=== PATIENT | female | born 1990 | race Caucasian/White ===

== ENCOUNTER 2017-10-08 17:20 | Emergency (ER) | payer OTHER ==
[~2017-10-08] VITALS: Ht 154.9 cm; Wt 61.3 kg
[~2017-10-08 17:20] MED LIST: ZOFRAN ODT4 MG PO
[2017-10-08] MEDS ORDERED: BUSPAR5 MG PO (18:01)
[2017-10-08] MEDS ORDERED: PAROXETINE10 MG PO (18:03)
[2017-10-08] MEDS ORDERED: PRAZOSIN HCL1 MG PO (18:04)
[2017-10-08 18:23] LABS: URINE BILIRUBIN - DIPSTICK NEGATIVE (NEGATIVE); URINE BLOOD DIPSTICK NEGATIVE (NEGATIVE); URINE COLOR YELLOW; URINE GLUCOSE - DIPSTICK NEGATIVE (NEGATIVE); URINE KETONE NEGATIVE (NEGATIVE); URINE LEUK ESTERASE NEGATIVE (NEGATIVE); URINE NITRITE - DIPSTICK NEGATIVE (Negative); URINE PROTEIN - DIPSTICK NEGATIVE (NEG-TRACE); URINE SPECIFIC GRAVITY <=1.005; URINE UROBILINOGEN - DIPSTICK 0.2 E.U./dL (0.2)
[2017-10-08 18:26] LABS: HEMATOCRIT 36.9 % (37.0-47.0); HEMOGLOBIN 12.6 g/dl (12.0-16.0); IMMATURE GRANULOCYTES 0.2 % (0.0-1.0); MEAN CELL VOLUME 95.6 fL CALC (80.0-100.0); MEAN CORPUSCULAR HGB 32.6 pG CALC (26.0-32.0); MEAN CORPUSCULAR HGB CONC 34.1 g/L CALC (32.0-36.0); NEUT# 2.55 thou/uL (2.00-7.15); RED BLOOD COUNT 3.86 mill/uL (4.20-5.60); RED CELL DISTRI WIDTH 12.5 % (11.5-15.5)
[2017-10-08 18:27] LABS: URINE CLARITY CLEAR
[2017-10-08 18:37] LABS: ALBUMIN 4.3 g/dL (3.2-5.0); ALKALINE PHOSPHATASE 59 u/l (38-126); AMYLASE 41 u/l (30-110); ANION GAP 16 (6-22 (CALC)); BILIRUBIN, TOTAL 0.3 mg/dL (0.0-1.4); BUN 8 mg/dL (7-17); CARBON DIOXIDE 25 mmol/l (22-30); CHLORIDE 108 mmol/l (95-108); LIPASE 73 u/l (23-300); SGOT/AST 17 u/l (14-36); SGPT/ALT 17 u/l (9-52); TOTAL PROTEIN 7.1 g/dL (6.3-8.2)
[2017-10-08 18:38] LABS: BUN/CREATININE RATIO 11 (12-20 (CALC)); CREATININE 0.7 mg/dL (0.5-1.0); GFR > 60 ML/MIN (>=60 (CALC)); GFR FOR AFR.AMER. > 60 ML/MIN (>=60 (CALC)); SODIUM 145 mmol/l (137-146)
[2017-10-08 21:26] VITALS: BP 99/75
== END 2017-10-08 21:17 | DRG 392 ==
LOC: ED 17:20
PROVIDERS: Family Medicine
DX: R10.32 Left lower quadrant pain (principal); K80.80 Other cholelithiasis without obstruction
CPT/HCPCS: Q9967

== ENCOUNTER 2018-01-10 23:55 | Emergency (ER) | payer SELFPAY ==
[~2018-01-10] VITALS: Ht 154.9 cm; Wt 48.6 kg
[~2018-01-10 23:55] MED LIST changes: +BUSPAR5 MG PO; +PAROXETINE10 MG PO; +PRAZOSIN HCL1 MG PO
[2018-01-11 00:40] LABS: HEMATOCRIT 41.6 % (37.0-47.0); HEMOGLOBIN 14.4 g/dl (12.0-16.0); IMMATURE GRANULOCYTES 0.6 % (0.0-1.0); MEAN CELL VOLUME 95.6 fL CALC (80.0-100.0); MEAN CORPUSCULAR HGB 33.1 pG CALC (26.0-32.0); MEAN CORPUSCULAR HGB CONC 34.6 g/L CALC (32.0-36.0); NEUT# 14.75 thou/uL (2.00-7.15); RED BLOOD COUNT 4.35 mill/uL (4.20-5.60); RED CELL DISTRI WIDTH 12.2 % (11.5-15.5); URINE BLOOD DIPSTICK NEGATIVE (NEGATIVE); URINE COLOR YELLOW; URINE GLUCOSE - DIPSTICK NEGATIVE (NEGATIVE); URINE KETONE 40 mg/dL (NEGATIVE); URINE NITRITE - DIPSTICK NEGATIVE (Negative); URINE PH >=9.0 (4.5-8.0); URINE PROTEIN - DIPSTICK 30 mg/dL (NEG-TRACE)
[2018-01-11 00:41] LABS: URINE CLARITY TURBID
[2018-01-11 00:42] LABS: URINE BILIRUBIN - DIPSTICK SMALL (NEGATIVE); URINE LEUK ESTERASE MODERATE (NEGATIVE)
[2018-01-11 00:46] LABS: URINE RBC 0-2 RBC/hpf (0-5); URINE SQUAMOUS EPITHELIAL CELL FEW EPI/hpf (0-FEW); URINE WBC 50-100 WBC/hpf (0-5)
[2018-01-11 00:47] LABS: URINE BACTERIA MODERATE hpf; URINE MUCUS MANY hpf (NONE-FEW)
[2018-01-11 00:51] LABS: ALKALINE PHOSPHATASE 64 u/l (38-126); BILIRUBIN, TOTAL 0.8 mg/dL (0.0-1.4); BUN 9 mg/dL (7-17); BUN/CREATININE RATIO 15 (12-20 (CALC)); CARBON DIOXIDE 24 mmol/l (22-30); CHLORIDE 104 mmol/l (95-108); CREATININE 0.6 mg/dL (0.5-1.0); GFR > 60 ML/MIN (>=60 (CALC)); GFR FOR AFR.AMER. > 60 ML/MIN (>=60 (CALC)); SGOT/AST 13 u/l (14-36); SGPT/ALT 24 u/l (9-52); SODIUM 141 mmol/l (137-146); TOTAL PROTEIN 7.4 g/dL (6.3-8.2)
[2018-01-11 00:52] LABS: ANION GAP 16 (6-22 (CALC))
[2018-01-11 01:41] LABS: AMYLASE 39 u/l (30-110); LIPASE 14 u/l (23-300)
[2018-01-11 02:41] LABS: BARBITURATES NEGATIVE (NEGATIVE); COCAINE POSITIVE (NEGATIVE); METHADONE NEGATIVE (NEGATIVE); OXCYCODONE NEGATIVE (NEGATIVE); TETRAHYDROCANNABIONOL POSITIVE (NEGATIVE); TRICYLIC ANTIDEPRESSANTS NEGATIVE (NEGATIVE)
[2018-01-11] MEDS ORDERED: TRAMADOL HCL50 MG PO (03:34)
[2018-01-11] MEDS ORDERED: METRONIDAZOL500 MG PO (03:34)
[2018-01-11] MEDS ORDERED: DOXYCYCL HYC100 MG PO (03:34)
[2018-01-11 04:26] VITALS: BP 92/50
== END 2018-01-11 04:26 | disposition home or self-care (01) | DRG 759 ==
LOC: ED 23:55
PROVIDERS: Family Medicine
DX: N73.9 Female pelvic inflammatory disease, unspecified (principal); B96.20 Unspecified Escherichia coli [E. coli] as the cause of diseases classified elsewhere; F17.210 Nicotine dependence, cigarettes, uncomplicated; F41.9 Anxiety disorder, unspecified; F32.9 Major depressive disorder, single episode, unspecified; F43.10 Post-traumatic stress disorder, unspecified; F19.10 Other psychoactive substance abuse, uncomplicated

== ENCOUNTER 2018-09-26 22:48 | Emergency (ER) | payer SELFPAY ==
[~2018-09-26] VITALS: Ht 154.9 cm; Wt 57.0 kg
[~2018-09-26 22:48] MED LIST changes: +DOXYCYCL HYC100 MG PO; +METRONIDAZOL500 MG PO; +TRAMADOL HCL50 MG PO
[2018-09-26 23:00] VITALS: BP 133/83
[2018-09-26 23:23] LABS: HEMATOCRIT 38.5 % (37.0-47.0); HEMOGLOBIN 13.2 g/dl (12.0-16.0); IMMATURE GRANULOCYTES 0.4 % (0.0-5.0); MEAN CORPUSCULAR HGB 33.2 pG CALC (26.0-32.0); MEAN CORPUSCULAR HGB CONC 34.3 g/L CALC (32.0-36.0); NEUT# 4.09 thou/uL (2.00-7.15); RED BLOOD COUNT 3.97 mill/uL (4.20-5.60); RED CELL DISTRI WIDTH 12.7 % (11.5-15.5)
[2018-09-26 23:26] LABS: URINE BLOOD DIPSTICK LARGE (NEGATIVE); URINE COLOR YELLOW; URINE GLUCOSE - DIPSTICK NEGATIVE (NEGATIVE); URINE KETONE NEGATIVE (NEGATIVE); URINE LEUK ESTERASE NEGATIVE (NEGATIVE); URINE NITRITE - DIPSTICK NEGATIVE (Negative); URINE PROTEIN - DIPSTICK TRACE mg/dL (NEG-TRACE); URINE SPECIFIC GRAVITY >=1.030; URINE UROBILINOGEN - DIPSTICK 0.2 E.U./dL (0.2)
[2018-09-26 23:28] LABS: URINE BILIRUBIN - DIPSTICK SMALL (NEGATIVE)
[2018-09-26 23:29] LABS: COCAINE NEGATIVE (NEGATIVE); TETRAHYDROCANNABIONOL NEGATIVE (NEGATIVE); URINE RBC 25-50 RBC/hpf (0-5)
[2018-09-26 23:30] LABS: BARBITURATES NEGATIVE (NEGATIVE); METHADONE NEGATIVE (NEGATIVE); OXCYCODONE NEGATIVE (NEGATIVE); TRICYLIC ANTIDEPRESSANTS NEGATIVE (NEGATIVE)
[2018-09-26 23:33] LABS: ALBUMIN 4.6 g/dL (3.2-5.0); ALKALINE PHOSPHATASE 59 u/l (38-126); AMYLASE 44 u/l (30-110); ANION GAP 14 (6-22 (CALC)); BILIRUBIN, TOTAL 0.5 mg/dL (0.0-1.4); BUN 8 mg/dL (7-17); BUN/CREATININE RATIO 13 (12-20 (CALC)); CARBON DIOXIDE 25 mmol/l (22-30); CHLORIDE 104 mmol/l (95-108); CREATININE 0.6 mg/dL (0.5-1.0); GFR > 60 ML/MIN (>=60 (CALC)); GFR FOR AFR.AMER. > 60 ML/MIN (>=60 (CALC)); LIPASE 48 u/l (23-300); POTASSIUM 3.4 mmol/l (3.5-5.1); SGOT/AST 17 u/l (14-36); SODIUM 140 mmol/l (137-146); TOTAL PROTEIN 7.3 g/dL (6.3-8.2)
== END 2018-09-27 00:14 | disposition left against medical advice (07) | DRG 392 ==
LOC: ED 22:48
PROVIDERS: Emergency Medicine
DX: R10.11 Right upper quadrant pain (principal); K80.20 Calculus of gallbladder without cholecystitis without obstruction; R82.6 Abnormal urine levels of substances chiefly nonmedicinal as to source; F41.9 Anxiety disorder, unspecified; F32.9 Major depressive disorder, single episode, unspecified; F43.10 Post-traumatic stress disorder, unspecified; F17.200 Nicotine dependence, unspecified, uncomplicated; Z91.19 Patient's noncompliance with other medical treatment and regimen
CPT/HCPCS: S0164

== ENCOUNTER 2020-04-05 04:57 | Emergency (ER) | payer OTHER ==
[~2020-04-05] VITALS: Ht 154.9 cm; Wt 57.0 kg
[2020-04-05] MEDS ORDERED: PAROXETINE40 M1 PO (05:19)
[2020-04-05] MEDS ORDERED: LAMICTAL200 M1 PO (05:21)
[2020-04-05] MEDS ORDERED: (None)0.5 MG PO (05:26)
[2020-04-05] MEDS ORDERED: ALPRAZOLAM1 MG PO (05:28)
[2020-04-05 05:37] LABS: URINE BILIRUBIN - DIPSTICK NEGATIVE (NEGATIVE); URINE BLOOD DIPSTICK NEGATIVE (NEGATIVE); URINE COLOR YELLOW; URINE GLUCOSE - DIPSTICK NEGATIVE (NEGATIVE); URINE KETONE NEGATIVE (NEGATIVE); URINE LEUK ESTERASE NEGATIVE (NEGATIVE); URINE NITRITE - DIPSTICK NEGATIVE (Negative); URINE PH 8.5 (4.5-8.0); URINE PROTEIN - DIPSTICK NEGATIVE (NEG-TRACE); URINE SPECIFIC GRAVITY 1.015; URINE UROBILINOGEN - DIPSTICK 0.2 E.U./dL (0.2)
[2020-04-05 05:37] LABS: HEMATOCRIT 34.6 % (37.0-47.0); HEMOGLOBIN 11.3 g/dl (12.0-16.0); IMMATURE GRANULOCYTES 0.1 % (0.0-5.0); MEAN CELL VOLUME 91.8 fL CALC (80.0-100.0); MEAN CORPUSCULAR HGB CONC 32.7 g/dL CAL (32.0-36.0); NEUT# 4.04 thou/uL (2.00-7.15); RED BLOOD COUNT 3.77 mill/uL (4.20-5.60); RED CELL DISTRI WIDTH 14.3 % (11.5-15.5)
[2020-04-05 05:53] LABS: ALBUMIN 4.3 g/dL (3.2-5.0); ALKALINE PHOSPHATASE 82 u/l (38-126); ANION GAP 11 (6-22 (CALC)); BILIRUBIN, TOTAL 0.3 mg/dL (0.0-1.4); BUN 9 mg/dL (7-17); BUN/CREATININE RATIO 14 (12-20 (CALC)); CARBON DIOXIDE 27 mmol/l (22-30); CHLORIDE 103 mmol/l (95-108); CPK 69 u/l (30-165); CREATININE 0.6 mg/dL (0.5-1.0); ETHYL ALCOHOL 0 mg/dl (0-30); GFR > 60 ML/MIN (>=60 (CALC)); GFR FOR AFR.AMER. > 60 ML/MIN (>=60 (CALC)); POTASSIUM 3.5 mmol/l (3.5-5.1); SGOT/AST 28 u/l (14-36); SODIUM 137 mmol/l (137-146); TOTAL PROTEIN 7.1 g/dL (6.3-8.2)
[2020-04-05 08:34] VITALS: BP 109/62
== END 2020-04-05 08:34 | disposition short-term general hospital (02) | DRG 948 ==
LOC: ED 04:57
PROVIDERS: Emergency Medicine
DX: R41.82 Altered mental status, unspecified (principal); R90.89 Other abnormal findings on diagnostic imaging of central nervous system; F15.10 Other stimulant abuse, uncomplicated; F19.10 Other psychoactive substance abuse, uncomplicated; F41.9 Anxiety disorder, unspecified; F32.9 Major depressive disorder, single episode, unspecified; F43.10 Post-traumatic stress disorder, unspecified; F17.200 Nicotine dependence, unspecified, uncomplicated

== ENCOUNTER 2020-08-28 03:18 | Emergency (ER) | payer OTHER ==
[~2020-08-28] VITALS: Ht 154.9 cm; Wt 45.0 kg
[~2020-08-28 03:18] MED LIST changes: +(None)0.5 MG PO; +ALPRAZOLAM1 MG PO; +BACTRIM DS1 TAB PO; +LAMICTAL200 M1 PO; +PAROXETINE40 M1 PO; +PERCOCET 5/321 COMBO PO; +THC
[2020-08-28 03:55] LABS: HEMATOCRIT 33.4 % (37.0-47.0); HEMOGLOBIN 10.7 g/dl (12.0-16.0); IMMATURE GRANULOCYTES 0.3 % (0.0-5.0); MEAN CELL VOLUME 93.8 fL CALC (80.0-100.0); MEAN CORPUSCULAR HGB 30.1 pG CALC (26.0-32.0); NEUT# 8.9 thou/uL (2.00-7.15); RED BLOOD COUNT 3.56 mill/uL (4.20-5.60); RED CELL DISTRI WIDTH 15.1 % (11.5-15.5)
[2020-08-28 04:13] LABS: ALBUMIN 3.8 g/dL (3.2-5.0); ALKALINE PHOSPHATASE 66 u/l (38-126); AMYLASE 49 u/l (30-110); BUN 7 mg/dL (7-17); BUN/CREATININE RATIO 11 (12-20 (CALC)); CHLORIDE 103 mmol/l (95-108); CREATININE 0.6 mg/dL (0.5-1.0); GFR > 60 ML/MIN (>=60 (CALC)); GFR FOR AFR.AMER. > 60 ML/MIN (>=60 (CALC)); LIPASE 59 u/l (23-300); SGOT/AST 16 u/l (14-36); SODIUM 138 mmol/l (137-146); TOTAL PROTEIN 6.4 g/dL (6.3-8.2)
[2020-08-28 04:16] LABS: ANION GAP 11 (6-22 (CALC)); BILIRUBIN, TOTAL 0.5 mg/dL (0.0-1.4); CARBON DIOXIDE 29 mmol/l (22-30)
[2020-08-28 04:24] LABS: URINE BILIRUBIN - DIPSTICK NEGATIVE (NEGATIVE); URINE BLOOD DIPSTICK MODERATE (NEGATIVE); URINE COLOR YELLOW; URINE GLUCOSE - DIPSTICK NEGATIVE (NEGATIVE); URINE KETONE NEGATIVE (NEGATIVE); URINE PH 7.5 (4.5-8.0); URINE PROTEIN - DIPSTICK NEGATIVE (NEG-TRACE); URINE UROBILINOGEN - DIPSTICK 0.2 E.U./dL (0.2)
[2020-08-28 04:35] LABS: URINE LEUK ESTERASE SMALL (NEGATIVE); URINE NITRITE - DIPSTICK POSITIVE (Negative)
[2020-08-28 04:43] LABS: URINE BACTERIA MANY hpf; URINE SQUAMOUS EPITHELIAL CELL FEW EPI/hpf (0-FEW)
[2020-08-28] MEDS ORDERED: MAGNESIUM296 ML/BTL PO (06:45)
[2020-08-28] MEDS ORDERED: BACTRIM DS1 TAB PO (06:53)
[2020-08-28 07:16] VITALS: BP 98/54
--- NOTE | 2020-08-29 08:39 | NUR ---
PRELIM BLOOD CX RESULTS SHOW GRAM NEGATIVE RODS IN 2 BOTTLES, SAME SET. PT IS CURRENTLY ADMITTED. RESULTS REPORTED TO LAVELL
== END 2020-08-28 07:16 | DRG 690 ==
LOC: ED 03:18
PROVIDERS: Family Medicine
DX: N39.0 Urinary tract infection, site not specified (principal); K59.00 Constipation, unspecified; F19.10 Other psychoactive substance abuse, uncomplicated; K80.20 Calculus of gallbladder without cholecystitis without obstruction; F17.200 Nicotine dependence, unspecified, uncomplicated; F41.9 Anxiety disorder, unspecified; Z20.822 Contact with and (suspected) exposure to COVID-19
CPT/HCPCS: Q9967

== ENCOUNTER 2020-08-28 14:50 | Observation (INO) | payer OTHER ==
[~2020-08-28] VITALS: Ht 154.9 cm; Wt 45.4 kg
[~2020-08-28 14:50] MED LIST changes: +MAGNESIUM296 ML/BTL PO
--- NOTE | 2020-08-28 14:50 | NUR ---
PT AMBULATED TO THE ER WITH DCSO TAKEN TO ER BED 15 FOR TRIAGE.
[2020-08-28 16:43] LABS: HEMATOCRIT 34.6 % (37.0-47.0); HEMOGLOBIN 11.2 g/dl (12.0-16.0); IMMATURE GRANULOCYTES 0.4 % (0.0-5.0); MEAN CORPUSCULAR HGB 30.1 pG CALC (26.0-32.0); MEAN CORPUSCULAR HGB CONC 32.4 g/dL CAL (32.0-36.0); NEUT# 10.28 thou/uL (2.00-7.15); RED BLOOD COUNT 3.72 mill/uL (4.20-5.60); RED CELL DISTRI WIDTH 15.6 % (11.5-15.5)
[2020-08-28 17:07] LABS: ALBUMIN 3.6 g/dL (3.2-5.0); ALKALINE PHOSPHATASE 68 u/l (38-126); BILIRUBIN, TOTAL 0.5 mg/dL (0.0-1.4); BUN 8 mg/dL (7-17); BUN/CREATININE RATIO 13 (12-20 (CALC)); CARBON DIOXIDE 26 mmol/l (22-30); CHLORIDE 99 mmol/l (95-108); CREATININE 0.6 mg/dL (0.5-1.0); GFR > 60 ML/MIN (>=60 (CALC)); GFR FOR AFR.AMER. > 60 ML/MIN (>=60 (CALC)); LIPASE 26 u/l (23-300); POTASSIUM 4.6 mmol/l (3.5-5.1); SGOT/AST 28 u/l (14-36); TOTAL PROTEIN 6.4 g/dL (6.3-8.2)
[2020-08-28 17:09] LABS: ANION GAP 11 (6-22 (CALC)); SODIUM 131 mmol/l (137-146)
--- NOTE | 2020-08-28 17:30 | NUR ---
resting quietly, guard at bedside
--- NOTE | 2020-08-28 17:58 | NUR ---
straight cath completed using sterile technique. tolerated well.
--- NOTE | 2020-08-28 19:05 | NUR ---
PATIENT UP TO BR WITH ASSISTANCE. RETURNED TO BED. MONITORING CONTINUED. CALL GILBERT IN REACH.
[2020-08-28 19:16] LABS: URINE BILIRUBIN - DIPSTICK NEGATIVE (NEGATIVE); URINE BLOOD DIPSTICK LARGE (NEGATIVE); URINE COLOR YELLOW; URINE GLUCOSE - DIPSTICK NEGATIVE (NEGATIVE); URINE KETONE NEGATIVE (NEGATIVE); URINE NITRITE - DIPSTICK NEGATIVE (Negative); URINE PH 8.5 (4.5-8.0); URINE PROTEIN - DIPSTICK TRACE mg/dL (NEG-TRACE); URINE SPECIFIC GRAVITY 1.015; URINE UROBILINOGEN - DIPSTICK 0.2 E.U./dL (0.2)
[2020-08-28 19:20] LABS: URINE LEUK ESTERASE SMALL (NEGATIVE)
[2020-08-28 19:28] LABS: URINE SQUAMOUS EPITHELIAL CELL MANY EPI/hpf (0-FEW); URINE YEAST MANY hpf
--- NOTE | 2020-08-28 20:00 | NUR ---
SLEEPING. GUARD AT BEDSIDE.CALL GILBERT IN REACH
--- NOTE | 2020-08-28 21:13 | NUR ---
AWAITING PENDING ADMISSION. NO C/O.
[2020-08-28 22:10] VITALS: BP 103/71
--- NOTE | 2020-08-28 22:10 | NUR ---
PT ARRIVED TO FLOOR VIA WHEELCHAIR ACCOMPAINED BY ER STAFF AND X1 CINDY. PT IS ALERT AND ORIENTED X3. NO APPARENT DISTRESS NOTED. PT REQUESTING FOOD. C/O HEADACHE. LOW GRADE TEMP NOTED. PT HAS BANDAID ON RIGHT BREAST FROM I&D ON 08/24/20, CDI. FOOD AND DRINK PROVIDED, WILL MEDICATED FOR HEADACHE. PT ORIENTED TO ROOM AND CALL LIGHT SYSTEM. DISCUSSED POC. PT VERBALIZED UNDERSTANDING. SHACKLED TO BED, X1 CINDY REMAINS AT BEDSIDE. CALL LIGHT WITHIN REACH. WILL CONTINUE TO MONITOR.
--- NOTE | 2020-08-28 22:17 | NUR ---
TO MS VIA WC. STABLE UPON ARRIVAL. IV INTACT.
[2020-08-29] VITALS (7 sets, daily range): BP systolic 86–109; BP diastolic 41–65
--- NOTE | 2020-08-29 02:13 | NUR ---
PT RESTING IN BED WITH EYES CLOSED. X1 CINDY AT BEDSIDE, PT REMAINS SHACKLED TO BED. IV FLUIDS INFUSING WITHOUT DIFFICULTY. CALL LIGHT WITHIN REACH. WILL CONTINUE TO MONITOR.
[2020-08-29 05:26] LABS: HEMATOCRIT 31.4 % (37.0-47.0); IMMATURE GRANULOCYTES 0.6 % (0.0-5.0); MEAN CELL VOLUME 93.5 fL CALC (80.0-100.0); MEAN CORPUSCULAR HGB 29.8 pG CALC (26.0-32.0); MEAN CORPUSCULAR HGB CONC 31.8 g/dL CAL (32.0-36.0); NEUT# 9.49 thou/uL (2.00-7.15); RED BLOOD COUNT 3.36 mill/uL (4.20-5.60)
--- NOTE | 2020-08-29 06:15 | NUR ---
PT RESTING IN BED. WAKES EASILY. NO APPARENT DISTRESS NOTED. PT DENIES ANY PAIN OR DISCOMFORT. IVF INFUSING WITHOUT DIFFICULTY. X1 CINDY AT BEDSIDE. CALL LIGHT WITHIN REACH. WILL CONTINUE TO MONITOR.
[2020-08-29 06:37] LABS: ALBUMIN 2.6 g/dL (3.2-5.0); ALKALINE PHOSPHATASE 50 u/l (38-126); ANION GAP 9 (6-22 (CALC)); BILIRUBIN, TOTAL 0.2 mg/dL (0.0-1.4); BUN 10 mg/dL (7-17); BUN/CREATININE RATIO 14 (12-20 (CALC)); CARBON DIOXIDE 23 mmol/l (22-30); CHLORIDE 108 mmol/l (95-108); CHOLESTEROL HDL RATIO 2.3 (<4.4 (CALC)); CREATININE 0.8 mg/dL (0.5-1.0); GFR > 60 ML/MIN (>=60 (CALC)); GFR FOR AFR.AMER. > 60 ML/MIN (>=60 (CALC)); HDL CHOLESTEROL 48 mg/dL (>=40); POTASSIUM 3.9 mmol/l (3.5-5.1); SGOT/AST 17 u/l (14-36); SODIUM 137 mmol/l (137-146); TOTAL CHOLESTEROL 112 mg/dl (0-199); TOTAL PROTEIN 4.9 g/dL (6.3-8.2)
--- NOTE | 2020-08-29 07:50 | NUR ---
RECIEVED REPORT FROM CHARU QURESHI. PT SLEEPING IN SEMI [place] POSITION UPON ENTERING ROOM. PT EASE TO AWAKEN. INTRODUCED SELF TO PT AND DICUSSED POC. PT IS A/OX3 AND FROM [facility] WITH GUARD X1 AT BEDSIDE. ASSESSMENT AND VITALS COMPLETED. BP 87/55, HR 91, O2 100% ON ROOM AIR. REPSIRATIONS ARE EVEN AND UNLABORED WITH NO DISTRESS NOTED. HEART RHYTHM IS NORMAL. BOWEL SOUNDS ARE ACTIVE, LAST REPORTED BM 08/28/20. RADIAL AND PEDAL PULSES ARE STRONG. #20G IN RAC INFUSING WITH NORMAL SALINE PER ORDER, SITE APPEARS HEALTHY AND PATENT. PT COMPLAINS OF 7/10 HEADACHE, TYLENOL ADMINISTERED. PT PRESENT WITH BAND AIDE ON RIGHT NIPPLE. MEDICAL CENTER REPRESENTATIVE INFORMED THAT PT HAD I& D ON 08/24/20. PT STATES THAT DRESSING HAS NOT BEEN CHANGED SINCE. MD TO BE NOTFIED. PT REQUEST CHOCOLATED PUDDING AND COKE. ALL SAFETY PRECAUTIONS ARE IN PLACE WITH CALL LIGHT IN REACH. WILL CONTINUE TO MONITOR.
--- NOTE | 2020-08-29 08:30 | NUR ---
DR STACK AT BEDSIDE AT BEDSIDE
[2020-08-29 10:19] LABS: CALCULATED LDLCHOLESTEROL 49 mg/dL (62-129 (CALC)); TOTAL TRIGLYCERIDES 75 mg/dl (30-149); VLDL CHOLESTROL 15 mg/dl (1-41 (CALC))
--- NOTE | 2020-08-29 10:33 | NUR ---
REASSESSMENT OF BP REUSLTING IN 103/64, HR 99. CHOCOLATE PUDDING AND COKE ADMINISTERED. PT DENIES OF ANY NEEDS. ALL SAFETY PRECAUTIONS ARE IN PLACE. WILL CONTINUE TO MONITOR
--- NOTE | 2020-08-29 11:13 | NUR ---
REASSESSMENT OF PAIN RESULTING IN 02/21 STILL. MD NOTFIED OF PAIN. RESPIRATIONS REMAINS EVEN AND UNLABORED WITH NO DISTRESS. IVF INFUSING PER ORDER, SITE REMAINS HEALTHY AND PATENT. ALL SAFETY PRECAUTIONS ARE IN PLACE WITH CALL LIGHT IN REACH AND GUARD X1 AT BEDSIDE. WILL COINTINUE TO MONITOR
--- NOTE | 2020-08-29 12:19 | NUR ---
ORDERED WET TO DRY DRESSING TO RIGHT BREAST COMPLETED AT THIS TIME. PT TOELRATED WELL. RESPIRATIONS ARE EVEN AND UNLABORED ON ROOM AIR. PT COMLAINS OF 8 HEADACHE, LORTAB ADMINISTERED. PT DENIES OF ANY ADDITIONAL NEEDS AT THIS TIME. ALL SAFETY PRECAUTIONS ARE IN PLACE WIHT GUARD X1 AT BEDSIDE. WILL CONTINUE TO MONITOR.
--- NOTE | 2020-08-29 13:30 | NUR ---
PT TRANSPORTED TO US VIA WHEELCHAIR IN STABLE CONDITION ACCOMPAIN BY CASEY ARRIAGA
--- NOTE | 2020-08-29 14:10 | NUR ---
SUPERVISOR [employer] INFORMED BY ULTRA SOUND THAT US SHOWED DISTENDED BLADDER. MD TO BE NOTFIED.
--- NOTE | 2020-08-29 14:25 | NUR ---
BLADDER SCAN COMPLETED REUSLTING IN 475 ML.PT REPORTS THAT SHE HAS VOIDED EARLIER IN MORNING. PT STATES " IT FEELS LIKE I NEED TO GO BUT I CAN'T" MD [employer]. ORDERED TO STRAIGHT CATH.
--- NOTE | 2020-08-29 15:02 | NUR ---
STRAIGHT CATH COMPLETED WITH STERILE TECHNIQUE. PT TOLERATED WELL. 500ML OF YELLOW URINE OBTAINED.
--- NOTE | 2020-08-29 16:26 | NUR ---
PT SLEEPING IN CHAIR. RESPIRATIONS AER EVEN AND UNLABORED ON ROOM AIR. IVF INFUSING PER ORDER, SITE APPEARS EHALTHY AND PATENT. NO SIGNS OF ANY PAINS OR DISCOMFORTS. ALL SAFETY PRECAUTIONS ARE IN PLACE WITH CALL LIGHT IN REACH AND GUARD AT BEDSIDE. WILL CONTINUE TO MONITOR
--- NOTE | 2020-08-29 17:47 | NUR ---
PT VOIDED 300 OF CLEAR YELLOW URINE.
--- NOTE | 2020-08-29 20:30 | NUR ---
PT APPEARS TO BE SLEEPING, LAYING IN BED ON HER SIDE WITH EYES CLOSED, NO APPARENT DISTRESS, RESPIRATIONS REGULAR AND UNLABORED, APPEARS COMFORTABLE. WAKES EASILY TO VERBAL STIMULI. PT IS SHACKLED TO BED BY LLE. WOUND/OSTOMY CLINICAL NURSE SPECIALIST SITTING IN ROOM WITH PT. DRESSING TO R-BREAST TO R-SIDE MATTHIAS-AREOLAR REGION IS CLEAN/ DRY/ AND INTACT. SECURED WITH TRANSPARENT DRESSING. AREA AROUND WOUND IS INTACT AND FREE OF INDURATION AND ERYTHEMA. PT DENIES PAIN TO BREAST WOUND. PT C/O HEADACE TO OCCIPITAL REGION AND UPPER NAPE, RATES 8. R-AC #20G PATENT, INFUSING NS @ 150ML/H. SCHEDULED MEDICATION, PRN LORTAB FOR PAIN AND PRN XANAX FOR SLEEP ADMINISTERED. SEE E-MAR. HS SNACK AND BEVERAGE PROVIDED PER PT'S REQUEST. PT DENIES FURTHER NEEDS AT THIS TIME. PLAN OF CARE REVIEWED, PT VERBALIZES UNDERSTANDING AND DENIES QUESTIONS. CALL GILBERT WITHIN REACH, AGREES TO CALL PRN.
--- NOTE | 2020-08-30 00:39 | NUR ---
PT APPEARS TO BE SLEEPING COMFORTABLY, LAYING IN BED, EYES CLOSED, RESPIRATIONS REGULAR AND UNLABORED, NO APPARENT DISTRESS. CALL GILBERT REMAINS WITHIN REACH.
[2020-08-30 04:00] VITALS: BP 115/80
--- NOTE | 2020-08-30 04:53 | NUR ---
PT APPEARS TO BE SLEEPING COMFORTABLY, LAYING IN BED, EYES CLOSED, RESPIRATIONS REGULAR AND UNLABORED, NO APPARENT DISTRESS. CALL GILBERT REMAINS WITHIN REACH.
[2020-08-30 07:24] VITALS: BP 100/67
--- NOTE | 2020-08-30 07:30 | NUR ---
ASSESSMENT DONE . PATIENT IS RESTING IN BED. PATIENT STATED SHE HAS HEADACHE . MEDICATED PATIENT WITH TYLENOL. RESPS EVEN AND UNLABORED. IVF INFUSING WELL. RIGHT BREAST DRESSING CDI. OFFICER AT BED SIDE. PATIENT DENIES ANY OTHER NEEDS AT THIS TIME. CALL LIGHT IN REACH.
[2020-08-30] MEDS ORDERED: ROCEPHIN 1 GM1 GM IM (09:32)
[2020-08-30] MEDS ORDERED: DIFLUCAN150 MG PO (09:32)
[2020-08-30] MEDS ORDERED: TRAMADOL HCL50 MG PO (09:33)
[2020-08-30 11:03] VITALS: BP 106/57
--- NOTE | 2020-08-30 12:00 | NUR ---
PATIENT IS RESTING ON HER RIGHT SIDE WITH NO S/S OF DISTRESS NOTED. OFFICER IN ROOM. CALL LIGHT IN REACH.
--- NOTE | 2020-08-30 12:39 | NUR ---
REPORT WAS GIVEN TO SUZANNE MARISCAL FROM [facility]. PATIENT WILL BE GOING WITH IV SITE FOR HER IV ANTIBIOTIC.
--- NOTE | 2020-08-30 13:32 | NUR ---
CHANGE PATIENT DRESSING ON RIGHT BREAST AND PATIENT TOLERATED WELL. CALL LIGHT IN REACH.
--- NOTE | 2020-08-30 13:54 | NUR ---
Discharge instructions given. Patient verbalizes understanding of same. [facility]. 20 RAC IV SITE LEFT IN PLACE AND FLUSH WELL. All belongings sent with pt.
== END 2020-08-30 13:53 | DRG 758 ==
LOC: ED 14:50 → ED-I 20:25 → ED 20:37 → MS2 20:38
PROVIDERS: Family Medicine; Nurse Practitioner; ADMIT Internal Medicine; ATTEND Internal Medicine
DX: B37.49 Other urogenital candidiasis (principal); R78.81 Bacteremia; F41.9 Anxiety disorder, unspecified; F19.10 Other psychoactive substance abuse, uncomplicated; R51.9 Headache, unspecified; M54.2 Cervicalgia; F31.9 Bipolar disorder, unspecified; F17.200 Nicotine dependence, unspecified, uncomplicated; F20.9 Schizophrenia, unspecified; Z48.01 Encounter for change or removal of surgical wound dressing; Z20.822 Contact with and (suspected) exposure to COVID-19
CPT/HCPCS: G0378; J1650; Q9967

== ENCOUNTER 2021-11-24 12:27 | Emergency (ER) | payer OTHER ==
[~2021-11-24] VITALS: Ht 154.9 cm; Wt 52.0 kg
[~2021-11-24 12:27] MED LIST changes: +DIFLUCAN150 MG PO; +ROCEPHIN 1 GM1 GM IM
[2021-11-24 12:41] VITALS: BP 114/93
[2021-11-24] MEDS ORDERED: BUSPAR5 MG PO (12:41)
[2021-11-24 13:12] LABS: MEAN CORPUSCULAR HGB 32.1 pG CALC (26.0-32.0); MEAN CORPUSCULAR HGB CONC 33.5 g/dL CAL (32.0-36.0); NEUT# 2.23 thou/uL (2.00-7.15); RED BLOOD COUNT 4.2 mill/uL (4.20-5.60); RED CELL DISTRI WIDTH 13.6 % (11.5-15.5)
[2021-11-24 13:24] LABS: HEMOGLOBIN 13.5 g/dl (12.0-16.0)
[2021-11-24 13:25] LABS: HEMATOCRIT 40.3 % (37.0-47.0)
[2021-11-24 13:27] LABS: ALKALINE PHOSPHATASE 53 u/l (38-126); ANION GAP 11 (6-22 (CALC)); BUN 6 mg/dL (7-17); BUN/CREATININE RATIO 11 (12-20 (CALC)); CARBON DIOXIDE 25 mmol/l (22-30); CHLORIDE 107 mmol/l (95-108); CREATININE 0.6 mg/dL (0.5-1.0); GFR > 60 ML/MIN (>=60 (CALC)); GFR FOR AFR.AMER. > 60 ML/MIN (>=60 (CALC)); HCG SERUM/URINE (NEG/POS) NEGATIVE (NEGATIVE); POTASSIUM 3.8 mmol/l (3.5-5.1); SGOT/AST 19 u/l (14-36); SODIUM 139 mmol/l (137-146)
[2021-11-24 13:31] LABS: ALBUMIN 4.1 g/dL (3.2-5.0); BILIRUBIN, TOTAL 0.9 mg/dL (0.0-1.4); TOTAL PROTEIN 7.1 g/dL (6.3-8.2)
[2021-11-24] MEDS ORDERED: DOXYCYCL HYC100 M4 PO (13:47)
[2021-11-24] MEDS ORDERED: METRONIDAZOLE500 MG PO (13:47)
[2021-11-24] MEDS ORDERED: ISENTRESS400 MG PO (13:51)
[2021-11-24] MEDS ORDERED: COMBIVIR 1501 COMBO PO (13:51)
[2021-11-24 13:59] LABS: URINE BILIRUBIN - DIPSTICK NEGATIVE (NEGATIVE); URINE BLOOD DIPSTICK NEGATIVE (NEGATIVE); URINE COLOR YELLOW; URINE GLUCOSE - DIPSTICK NEGATIVE (NEGATIVE); URINE KETONE NEGATIVE (NEGATIVE); URINE NITRITE - DIPSTICK POSITIVE (Negative); URINE PROTEIN - DIPSTICK NEGATIVE (NEG-TRACE)
[2021-11-24 14:00] LABS: URINE BACTERIA MANY hpf; URINE EPITHELIAL CELLS MODERATE EPI/hpf (0-FEW); URINE LEUK ESTERASE SMALL (NEGATIVE); URINE MUCUS MODERATE hpf (NONE-FEW)
== END 2021-11-24 14:07 | disposition left against medical advice (07) ==
LOC: ED 12:27
PROVIDERS: Family Medicine
DX: T76.21XA Adult sexual abuse, suspected, initial encounter (principal); Z20.2 Contact with and (suspected) exposure to infections with a predominantly sexual mode of transmission; F17.210 Nicotine dependence, cigarettes, uncomplicated; R82.71 Bacteriuria; Z91.19 Patient's noncompliance with other medical treatment and regimen

== ENCOUNTER 2022-07-29 21:20 | Emergency (ER) | payer OTHER ==
[~2022-07-29] VITALS: Ht 154.9 cm; Wt 47.7 kg
[2022-07-29] VITALS (8 sets, daily range): BP systolic 94–105; BP diastolic 55–65
[~2022-07-29 21:20] MED LIST changes: +COMBIVIR 1501 COMBO PO; +DOXYCYCL HYC100 M4 PO; +ISENTRESS400 MG PO; +METRONIDAZOLE500 MG PO
[2022-07-29 21:43] LABS: HEMOGLOBIN 11.9 g/dl (12.0-16.0); IMMATURE GRANULOCYTES 0.1 % (0.0-5.0); MEAN CELL VOLUME 92.2 fL CALC (80.0-100.0); MEAN CORPUSCULAR HGB 32.1 pG CALC (26.0-32.0); MEAN CORPUSCULAR HGB CONC 34.8 g/dL CAL (32.0-36.0); NEUT# 2.46 thou/uL (2.00-7.15); RED BLOOD COUNT 3.71 mill/uL (4.20-5.60); RED CELL DISTRI WIDTH 13.2 % (11.5-15.5)
[2022-07-29 21:44] LABS: HEMATOCRIT 34.2 % (37.0-47.0)
[2022-07-29 21:55] LABS: ALBUMIN 4.5 g/dL (3.2-5.0); ALKALINE PHOSPHATASE 79 u/l (38-126); ANION GAP 15 (6-22 (CALC)); BUN 16 mg/dL (7-17); BUN/CREATININE RATIO 22 (12-20 (CALC)); CARBON DIOXIDE 22 mmol/l (22-30); CHLORIDE 106 mmol/l (95-108); CREATININE 0.7 mg/dL (0.5-1.0); D-DIMER 0.84 mg/L (0.19-0.60); GFR FOR AFR.AMER. > 60 ML/MIN (>=60 (CALC)); GFR OTHER RACES > 60 ML/MIN (>=60 (CALC)); LIPASE 43 u/l (23-300); POTASSIUM 3.7 mmol/l (3.5-5.1); SODIUM 139 mmol/l (137-146); TOTAL PROTEIN 7.5 g/dL (6.3-8.2)
[2022-07-29 21:59] LABS: BILIRUBIN, TOTAL 0.4 mg/dL (0.0-1.4); SGOT/AST 35 u/l (14-36)
[2022-07-29 22:01] LABS: INTERNATIONAL NORMALIZED RATIO 1.1 RATIO (0.7-1.3); PROTHROMBIN TIME 10.5 SECONDS (9.0-12.5)
[2022-07-29 22:36] LABS: URINE BLOOD DIPSTICK MODERATE (NEGATIVE); URINE COLOR YELLOW; URINE GLUCOSE - DIPSTICK NEGATIVE (NEGATIVE); URINE KETONE TRACE mg/dL (NEGATIVE); URINE LEUK ESTERASE NEGATIVE (NEGATIVE); URINE PROTEIN - DIPSTICK NEGATIVE (NEG-TRACE); URINE SPECIFIC GRAVITY >=1.030; URINE UROBILINOGEN - DIPSTICK 0.2 E.U./dL (0.2)
[2022-07-29 22:44] LABS: URINE BILIRUBIN - DIPSTICK SMALL (NEGATIVE); URINE NITRITE - DIPSTICK NEGATIVE (Negative)
[2022-07-29 22:55] LABS: URINE SQUAMOUS EPITHELIAL CELL FEW EPI/hpf (0-FEW); URINE WBC 0-2 WBC/hpf (0-5)
[2022-07-30] VITALS: BP 90/57
[2022-07-30] MEDS ORDERED: COLACE100 MG PO (00:49)
[2022-07-30] MEDS ORDERED: TORADOL PO (00:49)
[2022-07-30 01:00] VITALS: BP 101/57
== END 2022-07-30 01:08 | disposition home or self-care (01) ==
LOC: ED 21:20
PROVIDERS: Family Medicine
DX: F19.10 Other psychoactive substance abuse, uncomplicated (principal); K59.09 Other constipation; F17.200 Nicotine dependence, unspecified, uncomplicated; Z20.6 Contact with and (suspected) exposure to human immunodeficiency virus [HIV]
CPT/HCPCS: Q9967

== ENCOUNTER 2022-12-22 08:46 | Emergency (ER) | payer OTHER ==
[~2022-12-22] VITALS: Ht 154.9 cm; Wt 48.0 kg
[2022-12-22] VITALS (8 sets, daily range): BP systolic 90–110; BP diastolic 60–68
[~2022-12-22 08:46] MED LIST changes: +COLACE100 MG PO; +TORADOL PO
[2022-12-22 09:29] LABS: BASO% 0.2 % (0-3); HEMATOCRIT 37.9 % (37.0-47.0); HEMOGLOBIN 12.5 g/dl (12.0-16.0); IMMATURE GRANULOCYTES 0.6 % (0.0-5.0); LYMPH% 12.3 % (15-41); MEAN CELL VOLUME 96.7 fL CALC (80.0-100.0); MEAN CORPUSCULAR HGB 31.9 pG CALC (26.0-32.0); MONO% 4.1 % (2-13); NEUT# 7.34 thou/uL (2.00-7.15); NEUT% 80.8 % (42-76); RED BLOOD COUNT 3.92 mill/uL (4.20-5.60); RED CELL DISTRI WIDTH 14.5 % (11.5-15.5)
[2022-12-22 09:43] LABS: ALKALINE PHOSPHATASE 57 u/l (38-126); ANION GAP 9 (6-22 (CALC)); BILIRUBIN, TOTAL 0.3 mg/dL (0.02-1.3); BUN 16 mg/dL (7-17); BUN/CREATININE RATIO 26 (12-20 (CALC)); CARBON DIOXIDE 29 mmol/l (22-30); CHLORIDE 105 mmol/l (95-108); CREATININE 0.6 mg/dL (0.5-1.0); GFR FOR AFR.AMER. > 60 ML/MIN (>=60 (CALC)); GFR OTHER RACES > 60 ML/MIN (>=60 (CALC)); POTASSIUM 4.2 mmol/l (3.5-5.1); SGOT/AST 42 u/l (14-36); SODIUM 139 mmol/l (137-146); TOTAL PROTEIN 6.9 g/dL (6.3-8.2)
[2022-12-22] MEDS ORDERED: KEPPRA500 M2 PO (10:05)
[2022-12-22 11:16] LABS: URINE BILIRUBIN - DIPSTICK NEGATIVE (NEGATIVE); URINE BLOOD DIPSTICK MODERATE (NEGATIVE); URINE COLOR YELLOW; URINE GLUCOSE - DIPSTICK NEGATIVE (NEGATIVE); URINE KETONE NEGATIVE (NEGATIVE); URINE LEUK ESTERASE NEGATIVE (NEGATIVE); URINE PROTEIN - DIPSTICK NEGATIVE (NEG-TRACE); URINE UROBILINOGEN - DIPSTICK 0.2 E.U./dL (0.2)
[2022-12-22 11:17] LABS: URINE NITRITE - DIPSTICK NEGATIVE (Negative)
[2022-12-22 11:24] LABS: URINE MUCUS RARE hpf (NONE-FEW); URINE SQUAMOUS EPITHELIAL CELL MODERATE EPI/hpf (0-FEW)
== END 2022-12-22 16:06 | disposition home or self-care (01) | DRG 103 ==
LOC: ED 08:46
PROVIDERS: Family Medicine
DX: R51.9 Headache, unspecified (principal); R07.9 Chest pain, unspecified; F31.9 Bipolar disorder, unspecified; F41.1 Generalized anxiety disorder; F17.210 Nicotine dependence, cigarettes, uncomplicated; Z20.822 Contact with and (suspected) exposure to COVID-19

== ENCOUNTER 2023-04-08 11:30 | Emergency (ER) | payer OTHER ==
[~2023-04-08] VITALS: Ht 154.9 cm; Wt 41.2 kg
[~2023-04-08 11:30] MED LIST changes: +KEPPRA500 M2 PO
[2023-04-08] MEDS ORDERED: NEURONTIN100 MG PO (13:56)
[2023-04-08 14:07] VITALS: BP 104/65
== END 2023-04-08 14:13 | disposition home or self-care (01) ==
LOC: ED 11:30
DX: G56.03 Carpal tunnel syndrome, bilateral upper limbs (principal); F41.1 Generalized anxiety disorder; F17.210 Nicotine dependence, cigarettes, uncomplicated

== ENCOUNTER 2024-02-20 06:58 | Emergency (ER) | payer OTHER ==
[2024-02-20] VITALS (7 sets, daily range): BP systolic 98–123; BP diastolic 62–81
[~2024-02-20] VITALS: Ht 154.9 cm; Wt 47.0 kg
[~2024-02-20 06:58] MED LIST changes: +NEURONTIN100 MG PO
[2024-02-20] MEDS ORDERED: SODIUM CHLORIDE 0.9% 1,000 ML IV ONE (07:20)
[2024-02-20] MEDS ORDERED: ACETAMINOPHEN 325 MG/TAB PO ONE (07:20)
[2024-02-20 07:45] LABS: BASO% 1.1 % (0-3); EOS% 4.3 % (0-8); HEMATOCRIT 37.4 % (37.0-47.0); HEMOGLOBIN 12.7 g/dl (12.0-16.0); LYMPH% 43.2 % (15-41); MEAN CELL VOLUME 95.7 fL CALC (80.0-100.0); MEAN CORPUSCULAR HGB 32.5 pG CALC (26.0-32.0); MONO% 12.1 % (2-13); NEUT# 2.21 thou/uL (2.00-7.15); NEUT% 39.3 % (42-76); RED BLOOD COUNT 3.91 mill/uL (4.20-5.60); RED CELL DISTRI WIDTH 13.1 % (11.5-15.5)
[2024-02-20 08:01] LABS: ALBUMIN 4.6 g/dL (3.2-5.0); BILIRUBIN, TOTAL 1.1 mg/dL (0.02-1.3); CREATININE 0.7 mg/dL (0.5-1.0); POTASSIUM 3.7 mmol/l (3.5-5.1); TOTAL PROTEIN 7.9 g/dL (6.3-8.2)
[2024-02-20 08:34] LABS: URINE BLOOD DIPSTICK Negative (NEGATIVE); URINE GLUCOSE - DIPSTICK Negative (NEGATIVE); URINE KETONE Negative (NEGATIVE); URINE LEUK ESTERASE Negative (NEGATIVE); URINE NITRITE - DIPSTICK Negative (Negative); URINE PROTEIN - DIPSTICK 30 mg/dL (NEG-TRACE); URINE SPECIFIC GRAVITY >=1.030
[2024-02-20 08:35] LABS: URINE COLOR Yellow
[2024-02-20 08:36] LABS: URINE EPITHELIAL CELLS MODERATE EPI/hpf (0-FEW); URINE MUCUS FEW hpf (NONE-FEW)
[2024-02-20] MEDS ORDERED: MIDAZOLAM HCL 2 MG/2 ML VIAL IV ONE (08:45)
[2024-02-20] MEDS ORDERED: LevETIRAcetam 500 MG/TAB PO ONE (09:20)
== END 2024-02-20 09:52 | DRG 101 ==
LOC: ED 06:58
PROVIDERS: Family Medicine
DX: G40.909 Epilepsy, unspecified, not intractable, without status epilepticus (principal); F31.9 Bipolar disorder, unspecified; F41.1 Generalized anxiety disorder; F20.9 Schizophrenia, unspecified; F17.200 Nicotine dependence, unspecified, uncomplicated

== ENCOUNTER 2024-04-05 11:29 | Emergency (ER) | payer SELFPAY ==
[~2024-04-05] VITALS: Ht 154.9 cm; Wt 40.8 kg
[2024-04-05 11:35] VITALS: BP 110/70
[2024-04-05 11:45] VITALS: BP 101/61
[2024-04-05 12:00] VITALS: BP 112/66
[2024-04-05] MEDS ORDERED: TYLENOL # 31 TA1 PO (12:09)
[2024-04-05] MEDS ORDERED: AMOX/K CLAV875 M1 PO (12:09)
[2024-04-05 12:15] VITALS: BP 107/61
== END 2024-04-05 12:20 | disposition home or self-care (01) | DRG 159 ==
LOC: ED 11:29
DX: K04.7 Periapical abscess without sinus (principal); K02.9 Dental caries, unspecified; S02.5XXA Fracture of tooth (traumatic), initial encounter for closed fracture; K08.409 Partial loss of teeth, unspecified cause, unspecified class; F31.9 Bipolar disorder, unspecified; F41.1 Generalized anxiety disorder; F17.210 Nicotine dependence, cigarettes, uncomplicated; X58.XXXA Exposure to other specified factors, initial encounter

== ENCOUNTER 2024-04-25 15:41 | Emergency (ER) | payer SELFPAY ==
[~2024-04-25] VITALS: Ht 154.9 cm; Wt 40.9 kg
[~2024-04-25 15:41] MED LIST changes: +AMOX/K CLAV875 M1 PO; +TYLENOL # 31 TA1 PO
[2024-04-25 15:49] VITALS: BP 104/64
[2024-04-25 16:00] VITALS: BP 112/57
[2024-04-25 16:00] LABS: BASO% 0.6 % (0-3); HEMATOCRIT 37.8 % (37.0-47.0); HEMOGLOBIN 12.7 g/dl (12.0-16.0); LYMPH% 37.5 % (15-41); MEAN CELL VOLUME 96.7 fL CALC (80.0-100.0); MEAN CORPUSCULAR HGB 32.5 pG CALC (26.0-32.0); MEAN CORPUSCULAR HGB CONC 33.6 g/dL CAL (32.0-36.0); MONO% 10.1 % (2-13); NEUT# 3.42 thou/uL (2.00-7.15); NEUT% 48.8 % (42-76); RED BLOOD COUNT 3.91 mill/uL (4.20-5.60); RED CELL DISTRI WIDTH 12.4 % (11.5-15.5)
[2024-04-25] MEDS ORDERED: ACETAMINOPHEN 325 MG/TAB PO ONE (16:15)
[2024-04-25 16:16] LABS: ALBUMIN 4.3 g/dL (3.2-5.0); BILIRUBIN, TOTAL 0.5 mg/dL (0.02-1.3); CREATININE 0.8 mg/dL (0.5-1.0); POTASSIUM 3.5 mmol/l (3.5-5.1); TOTAL PROTEIN 7.1 g/dL (6.3-8.2)
[2024-04-25 16:17] VITALS: BP 107/57
[2024-04-25 16:30] VITALS: BP 113/71
[2024-04-25] MEDS ORDERED: LEVETIRACETAM500 MG PO ×2 (16:38→16:53)
[2024-04-25] MEDS ORDERED: GABAPENTIN300 M2 PO ×2 (16:46→16:53)
[2024-04-25] MEDS ORDERED: ALPRAZOLAM2 M1 PO ×2 (16:47→16:53)
[2024-04-25] MEDS ORDERED: PAROXETINE40 M1 PO (16:53)
[2024-04-25] MEDS ORDERED: LAMICTAL200 M1 PO (16:53)
[2024-04-25] MEDS ORDERED: Diph, Acellular Pertussis, Tet 0.5 ML/VIAL (Tdap) SDV IM ONE (16:55)
== END 2024-04-25 17:55 | disposition left against medical advice (07) | DRG 605 ==
LOC: ED 15:41
PROVIDERS: Family Medicine
DX: S01.81XA Laceration without foreign body of other part of head, initial encounter (principal); T76.21XA Adult sexual abuse, suspected, initial encounter; F31.9 Bipolar disorder, unspecified; F41.9 Anxiety disorder, unspecified; F17.200 Nicotine dependence, unspecified, uncomplicated; W20.8XXA Other cause of strike by thrown, projected or falling object, initial encounter; Y93.E9 Activity, other interior property and clothing maintenance; Y92.009 Unspecified place in unspecified non-institutional (private) residence as the place of occurrence of the external cause; Z53.29 Procedure and treatment not carried out because of patient's decision for other reasons